=== PATIENT | male | born 1950 | race Caucasian/White ===

== ENCOUNTER 2024-03-08 11:27 | Observation (INO) ==
--- NOTE | 2024-03-08 12:10 | Emergency Department Note ---
HPI - Abdominal Pain General Chief Complaint: Abdominal Pain Stated Complaint: stomach pain Time Seen by Provider: 03/08/24 11:56 Source: patient Mode of arrival: walk-in Limitations: no limitations History of Present Illness HPI narrative: This is a 73 year old male patient that presents to the ER with c/o upper abdominal pain with diarrhea today. Patient denies any chest pain, back pain, fever, chills or N/V MD elicited complaint: abdominal pain Pertinent past history: none Onset (ago): hour(s) (2) Pain Consistency: constant Location: RUQ Severity: mild Quality: aching Radiation: none Migration to: no migration Exacerbating factors: nothing Relieving factors: nothing Associated symptoms: diarrhea Related Data Allergies Allergy/AdvReac Type Severity Reaction Status Date / Time ibuprofen Allergy Gastrointestinal Verified 03/08/24 11:59 Upset tramadol Allergy Gastrointestinal Verified 03/08/24 11:59 Upset Review of Systems Status of ROS 10 or more systems reviewed and unremark able except as noted in history and below Constitutional Denies: fever, chills, change in weight, fatigue, malaise or night sweats Eyes Denies: change in vision, blurry vision, blind spots, light sensitivity or eye discomfort Ears, nose, mouth, and throat Denies: throat pain, neck pain, throat swelling or difficulty swallowing Cardiovascular Denies: chest pain, palpitations, edema, swelling of feet/ankles or lightheadedness Respiratory Denies: shortness of breath, cough, wheezing, stridor or pain on inspiration Gastrointestinal Reports: abdominal pain and diarrhea; Denies: nausea, vomiting, coffee grounds in vomit, heartburn, constipation or belching Genitourinary Denies: painful urination, urinary frequency, urinary urgency, blood in urine, genital pain or genital lesion Musculoskeletal Denies: back pain, neck pain, extremity pain, extremity swelling, joint pain or limited range of motion Integumentary/Breast Denies: rash, itching, redness, skin pain or skin tenderness Neurological Denies: headache, numbness in extremities, weakness in extremities or lack of coordination Psychiatric Denies: anxiety, mood swings, panic attacks, change in sleep pattern or hopelessness Endocrine Denies: excessive urination, excessive thirst, fatigue or cold intolerance Hematologic/Lymphatic Denies: easy bruising, easy bleeding or enlarged lymph nodes Allergic/Immunologic Denies: hives, throat swelling, tongue swelling, facial swelling or wheezing [facility] Medical History (Updated 03/08/24 @ 14:47 by Caridad Miranda, RN) HTN (hypertension) CVA (cerebral vascular accident) Surgical History (Updated 03/08/24 @ 14:47 by Caridad Miranda, RN) Hx of shoulder surgery History of knee surgery H/O gastric bypass History of intestinal surgery Social History Smoking status: current some day smoker Within the past year, how often did you have a drink containing alcohol: never Score interpretation: A score less than 4 is consistent with normal alcohol consumption. Exam Constitutional: normal general appearance and no apparent distress Vital Signs - 24 hr 03/08/24 11:58 03/08/24 14:54 Temperature 98.4 F Pulse Rate 93 H Respiratory Rate 19 Blood Pressure 163/99 141/86 Pulse Oximetry 95 HENMT: normocephalic, head/scalp atraumatic and hearing grossly normal bilaterally Eyes: PERRL, EOMs intact bilaterally, conjunctivae normal and no scleral icterus Neck/C-Spine: visual inspection normal and trachea midline Lymph: no lymphadenopathy noted Chest: inspection of chest normal Respiratory: breath sounds equal bilaterally, normal respiratory effort, clear to auscultation bilaterally, no wheezes, no rales, no retractions, no use of accessory muscles and chest percussion normal Cardiovascular: normal heart rate noted, regular rhythm noted, no gallop, no rub, no murmur, no JVD, no clicks, peripheral pulses 2+ throughout and no additional abnormal heart sounds Gastrointestinal: abdomen normal to inspection, abdomen soft to palpation, tender to palpation (mild) and (RUQ), nontender to percussion, nondistended, normoactive bowel sounds, no hepatosplenomegaly, no masses, no pulsatile mass, no ascites and no hernia Genitourinary: no CVA tenderness Back/Pelvis: spine normal to inspection Extremities: normal to inspection, normal to palpation, no tenderness, full ROM, no joint enlargement and no deformity Neurology: no movement abnormality noted, gait normal, speech normal and GCS normal Psychiatry: mental status grossly normal, oriented x3, thought process normal and cooperative Skin: skin color normal Course Course Hospital Course: 1443: patient c/o chest pain, new orders written, will admit patient to the hospital for further evaluation and treatment due to risk factors and medical hx. Patient is currently on Plavix, ASA and warfarin according to his medication list Vital Signs Vital signs: Vital Signs Temperature 98.4 F 03/08/24 11:58 Pulse Rate 93 H 03/08/24 11:58 Respiratory Rate 19 03/08/24 11:58 Blood Pressure 163/99 03/08/24 11:58 Pulse Oximetry 95 03/08/24 11:58 Temperature 98.4 F 03/08/24 11:58 Pulse Rate 93 H 03/08/24 11:58 Respiratory Rate 19 03/08/24 11:58 Blood Pressure 141/86 03/08/24 14:54 Pulse Oximetry 95 03/08/24 11:58 MDM - Abdominal Pain Differential Diagnosis Differential diagnosis: Likely gastroenteritis Lab Data Attestation: I reviewed the patient's lab results. Labs: Lab Results 03/08/24 03/08/24 Range/Units 11:50 14:25 WBC 4.2 (3.7-9.6) K/uL RBC 4.5 (4.40-5.80) M/uL Hgb 12.2 L (14.0-17.4) gm/dL Hct 38.4 L (41.3-50.1) % MCV 85.1 (81.9-96.5) fl MCH 27.1 L (27.6-33.7) pg MCHC 31.9 L (33.0-35.7) g/dl RDW 21.4 H (11.0-14.8) % Plt Count 235 (142-355) K/uL MPV 9.1 (6.0-10.4) fl Gran % 70.1 (49.1-73.1) % Lymph % (Auto) 20.2 (17.6-39.05) % [place] % (Auto) 8.3 (4.5-10.7) % Eos % (Auto) 0.7 (0.0-4.0) % Baso % (Auto) 0.7 (0.0-1.3) Lymph # (Auto) 0.9 (0.8-2.9) [place] # (Auto) 0.4 (0.2-0.8) Eos # (Auto) 0.0 (0.0-0.3) Baso # (Auto) 0.0 (0.0-0.1) Absolute Gran (auto) 3.0 (2.0-6.2) PT Normal Control 13.7 Sodium 139 (136-145) mmol/L Potassium 3.2 L (3.6-5.2) mmol/L Chloride 103.0 (98-107) mmol/L Carbon Dioxide 27 (21-32) mmol/L Anion Gap 9.0 (4-14) mEq/L BUN 11 (7-18) mg/dL Creatinine 0.8 (0.6-1.3) mg/dL Estimated GFR 94.0 (>59.9) Glucose 120 H (70-110) mg/dL Calcium 8.8 (8.5-10.1) mg/dL Total Bilirubin 0.49 (0.0-1.0) mg/dL AST 24 (15-37) U/L ALT 23 L (30-65) U/L Alkaline Phosphatase 94 (50-136) U/L Troponin I High Sens 11.50 (4.0-60.4) ng/L Total Protein 8.0 (6.4-8.2) g/dL Albumin 3.4 (3.4-5.0) g/dL Lipase 26.0 (16.0-77.0) U/L Urine Color Yellow (STRAW/YELL.) Urine Appearance Clear (CLEAR) Ur Specific [place] 1.025 (1.001-1.035) Urine Protein Negative (NEGATIVE) Urine Glucose (UA) Normal (NORMAL) Urine Ketones Negative (NEGATIVE) Urine Occult Blood Negative (NEG - TRACE) Urine Nitrite Negative (NEGATIVE) Urine Bilirubin Negative (NEGATIVE) Urine Urobilinogen Normal (NORMAL) Ur Leukocyte Esterase Negative (NEGATIVE) Fluid pH 7.5 (5 - 9) Imaging Data Imaging ordered: CT scan - abdomen Attestation: I have reviewed the pertinent imaging results. ECG Data Attestation: I have reviewed the pertinent ECG results. Discharge Plan Discharge Patient Disposition: Admitted As Observation Condition: Stable Clinical Impression: Chest pain, Abdominal pain
[2024-03-08 12:21] LABS: Basophils%(Percent) Auto 0.7 (0.0-1.3); Eosinophils%(Percent) Auto 0.7 % (0.0-4.0); Granulocytes % - Auto 70.1 % (49.1-73.1); Hematocrit 38.4 % (41.3-50.1); Mean Corpuscular Volume 85.1 fl (81.9-96.5); Monocytes #(Absolute)- Auto 0.4 (0.2-0.8); Monocytes %(Percent)- Auto 8.3 % (4.5-10.7); Platelet Count 235 K/uL (142-355); White Blood Count 4.2 K/uL (3.7-9.6)
[2024-03-08 12:31] LABS: Potassium 3.2 mmol/L (3.6-5.2)
[2024-03-08 14:38] LABS: PH BODY FLUID EXCP BLOOD 7.5 (5 - 9); Specific Gravity Urine 1.025 (1.001-1.035); Urine Appearance CLEAR (CLEAR); Urine Blood NEGATIVE (NEG - TRACE); Urine Color YELLOW (STRAW/YELL.); Urine Urobilinogen Normal (NORMAL)
[2024-03-08] MEDS ORDERED: ONDANSETRON HCL/PF 4 MG/2 ML VIAL ONE (14:49)
[2024-03-08] MEDS ORDERED: MORPHINE SULFATE 2 MG/ML CARTRIDGE IV ONE (14:49)
[2024-03-08] MEDS ORDERED: PANTOPRAZOLE SODIUM 40 MG VIAL ONE (14:49)
[2024-03-08] MEDS ORDERED: NITROGLYCERIN 1 GM OINT...G. TD ONE (14:49)
[2024-03-08] MEDS: POTASSIUM CHLORIDE 20 MEQ TAB.ER.PRT PO ONE (14:54)
[2024-03-08] MEDS: NITROGLYCERIN 1 GM OINT...G. TD ONE (14:54)
[2024-03-08] MEDS: MORPHINE SULFATE 2 MG/ML CARTRIDGE IV ONE (14:55)
[2024-03-08] MEDS: ONDANSETRON HCL/PF 4 MG/2 ML VIAL IVP ONE (14:55)
[2024-03-08] MEDS: PANTOPRAZOLE SODIUM 40 MG VIAL IVP ONE (14:56)
[2024-03-08 15:18] LABS: INR 1.29
[2024-03-08] MEDS: MORPHINE SULFATE 2 MG/ML CARTRIDGE IV PRN (19:04)
[2024-03-08] MEDS: NITROGLYCERIN 1 GM OINT...G. TD SCH (21:11)
[2024-03-09 03:32] LABS: Eosinophils#(Absolute)Auto 0.1 (0.0-0.3); Eosinophils%(Percent) Auto 2.8 % (0.0-4.0); Granulocytes % - Auto 54.9 % (49.1-73.1); Hematocrit 33.6 % (41.3-50.1); Mean Corpuscular Volume 84.8 fl (81.9-96.5); Monocytes #(Absolute)- Auto 0.4 (0.2-0.8); Monocytes %(Percent)- Auto 11.5 % (4.5-10.7); Platelet Count 192 K/uL (142-355); White Blood Count 3.6 K/uL (3.7-9.6)
[2024-03-09 03:43] LABS: INR 1.28
[2024-03-09 03:56] LABS: Potassium 3.6 mmol/L (3.6-5.2)
[2024-03-09] MEDS: ACETAMINOPHEN 325 MG TABLET PO PRN (06:17)
--- NOTE | 2024-03-09 13:11 | Short Stay Summary ---
H&P: HPI History of Present Illness Chief complaint: chest pain , abdominal pain Review of Systems Status of ROS 10 or more systems reviewed and unremark able except as noted in history and below Constitutional Denies: fever, chills, change in weight, fatigue, malaise or night sweats Eyes Denies: change in vision, blurry vision, blind spots, light sensitivity or eye discomfort Ears, nose, mouth, and throat Denies: throat pain, neck pain, throat swelling or difficulty swallowing Cardiovascular Denies: chest pain, palpitations, edema, swelling of feet/ankles, lightheadedness or shortness of breath with exertion Respiratory Denies: shortness of breath, cough, wheezing, stridor or pain on inspiration Gastrointestinal Reports: abdominal pain and diarrhea; Denies: nausea, vomiting, coffee grounds in vomit, heartburn, constipation, belching or difficulty swallowing Genitourinary Denies: painful urination, urinary frequency, urinary urgency, blood in urine, genital pain or genital lesion Musculoskeletal Denies: back pain, neck pain, extremity pain, extremity swelling, joint pain or limited range of motion Integumentary/Breast Denies: rash, itching, redness, skin pain or skin tenderness Neurological Denies: headache, numbness in extremities, weakness in extremities or lack of coordination Psychiatric Denies: anxiety, mood swings, panic attacks, change in sleep pattern or hopelessness Endocrine Denies: excessive urination, excessive thirst, fatigue or cold intolerance Hematologic/Lymphatic Denies: easy bruising, easy bleeding or enlarged lymph nodes Allergic/Immunologic Denies: hives, throat swelling, tongue swelling, facial swelling or wheezing PFSH PFSH Medical History (Updated 03/08/24 @ 14:47 by Caridad Miranda RN) HTN (hypertension) CVA (cerebral vascular accident) Surgical History (Updated 03/08/24 @ 14:47 by Caridad Miranda RN) Hx of shoulder surgery History of knee surgery H/O gastric bypass History of intestinal surgery Social History Smoking status: current some day smoker Within the past year, how often did you have a drink containing alcohol: never Score interpretation: A score less than 4 is consistent with normal alcohol consumption. Problems where you live: no known problems Highest level of school completed/degree received: high school Meds Home Medications and Allergies Allergies Allergy/AdvReac Type Severity Reaction Status Date / Time ibuprofen Allergy Gastrointestinal Verified 03/08/24 11:59 Upset tramadol Allergy Gastrointestinal Verified 03/08/24 11:59 Upset Exam Constitutional: Vital Signs - 24 hr 03/08/24 13:30 03/08/24 14:30 03/08/24 14:54 Temperature Pulse Rate 71 68 Pulse Rate [Left B rachial] Respiratory Rate 16 16 Blood Pressure 156/87 140/86 141/86 Blood Pressure [Le ft Arm] Pulse Oximetry 96 95 Oxygen Delivery Me thod Room Air Room Air 03/08/24 15:15 03/08/24 15:30 03/08/24 15:41 Temperature Pulse Rate 69 68 Pulse Rate [Left B rachial] 62 Respiratory Rate 18 19 16 Blood Pressure 146/90 153/92 Blood Pressure [Le ft Arm] Pulse Oximetry 96 96 95 Oxygen Delivery Me thod Room Air Room Air Room Air 03/08/24 15:42 03/08/24 15:42 03/08/24 16:00 Temperature 98.4 F 98.1 F Pulse Rate 69 69 Pulse Rate [Left B rachial] 68 Respiratory Rate 18 16 16 Blood Pressure 146/90 153/88 Blood Pressure [Le ft Arm] 108/75 Pulse Oximetry [address] thod Room Air Room Air 03/08/24 16:11 03/08/24 19:16 03/08/24 23:19 Temperature 97.9 F 98.2 F Pulse Rate Pulse Rate [Left B rachial] 89 58 L Respiratory Rate 19 17 Blood Pressure 108/75 Blood Pressure [Le ft Arm] 111/70 134/85 Pulse Oximetry 91 L [address] thod Room Air Room Air 03/09/24 03:12 03/09/24 07:27 03/09/24 11:30 Temperature 97.9 F 98.5 F 97.9 F Pulse Rate Pulse Rate [Left B rachial] 58 L 61 70 Respiratory Rate 18 17 18 Blood Pressure Blood Pressure [Le ft Arm] 130/87 134/80 141/86 Pulse Oximetry 95 93 L 96 Oxygen Delivery Me thod Room Air Room Air Room Air Results Labs Labs: CBC WBC 3.6 K/uL (3.7-9.6) L 03/09/24 03:10 RBC 4.0 M/uL (4.40-5.80) L 03/09/24 03:10 Hgb 10.7 gm/dL (14.0-17.4) L 03/09/24 03:10 Hct 33.6 % (41.3-50.1) L 03/09/24 03:10 MCV 84.8 fl (81.9-96.5) 03/09/24 03:10 MCH 27.1 pg (27.6-33.7) L 03/09/24 03:10 MCHC 32.0 g/dl (33.0-35.7) L 03/09/24 03:10 RDW 21.5 % (11.0-14.8) H 03/09/24 03:10 Plt Count 192 K/uL (142-355) 03/09/24 03:10 MPV 9.0 fl (6.0-10.4) 03/09/24 03:10 Gran % 54.9 % (49.1-73.1) 03/09/24 03:10 Lymph % (Auto) 29.8 % (17.6-39.05) 03/09/24 03:10 [place] % (Auto) 11.5 % (4.5-10.7) H 03/09/24 03:10 Eos % (Auto) 2.8 % (0.0-4.0) 03/09/24 03:10 Baso % (Auto) 1.0 (0.0-1.3) 03/09/24 03:10 Lymph # (Auto) 1.1 (0.8-2.9) 03/09/24 03:10 [place] # (Auto) 0.4 (0.2-0.8) 03/09/24 03:10 Eos # (Auto) 0.1 (0.0-0.3) 03/09/24 03:10 Baso # (Auto) 0.0 (0.0-0.1) 03/09/24 03:10 Absolute Gran (auto) 2.0 (2.0-6.2) 03/09/24 03:10 BMP Sodium 143 mmol/L (136-145) 03/09/24 03:10 Potassium 3.6 mmol/L (3.6-5.2) 03/09/24 03:10 Chloride 108.0 mmol/L (98-107) H 03/09/24 03:10 Carbon Dioxide 29 mmol/L (21-32) 03/09/24 03:10 Anion Gap 6.0 mEq/L (4-14) 03/09/24 03:10 BUN 11 mg/dL (7-18) 03/09/24 03:10 Creatinine 0.6 mg/dL (0.6-1.3) 03/09/24 03:10 Estimated GFR 102.6 (>59.9) 03/09/24 03:10 Glucose 88 mg/dL (70-110) 03/09/24 03:10 Calcium 8.3 mg/dL (8.5-10.1) L 03/09/24 03:10 Total Bilirubin 0.40 mg/dL (0.0-1.0) 03/09/24 03:10 AST 21 U/L (15-37) 03/09/24 03:10 ALT 19 U/L (30-65) L 03/09/24 03:10 Alkaline Phosphatase 70 U/L (50-136) 03/09/24 03:10 Total Protein 6.6 g/dL (6.4-8.2) 03/09/24 03:10 Albumin 2.8 g/dL (3.4-5.0) L 03/09/24 03:10 Cardiac Enzymes Troponin I High Sens 12.90 ng/L (4.0-60.4) 03/09/24 03:10 Liver Function Total Bilirubin 0.40 mg/dL (0.0-1.0) 03/09/24 03:10 AST 21 U/L (15-37) 03/09/24 03:10 ALT 19 U/L (30-65) L 03/09/24 03:10 Alkaline Phosphatase 70 U/L (50-136) 03/09/24 03:10 Total Protein 6.6 g/dL (6.4-8.2) 03/09/24 03:10 Albumin 2.8 g/dL (3.4-5.0) L 03/09/24 03:10 Urine Urine Color Yellow (STRAW/YELL.) 03/08/24 14:25 Urine Appearance Clear (CLEAR) 03/08/24 14:25 Ur Specific [place] 1.025 (1.001-1.035) 03/08/24 14:25 Urine Protein Negative (NEGATIVE) 03/08/24 14:25 Urine Glucose (UA) Normal (NORMAL) 03/08/24 14:25 Urine Ketones Negative (NEGATIVE) 03/08/24 14:25 Urine Occult Blood Negative (NEG - TRACE) 03/08/24 14:25 Urine Nitrite Negative (NEGATIVE) 03/08/24 14:25 Urine Bilirubin Negative (NEGATIVE) 03/08/24 14:25 Urine Urobilinogen Normal (NORMAL) 03/08/24 14:25 Ur Leukocyte Esterase Negative (NEGATIVE) 03/08/24 14:25 DS: Providers Provider Date of admission: 03/08/24 15:27 Primary care physician: Khadra Camarillo NP DS: Summary Hospital Course Hospital Course: 1443: patient c/o chest pain, new orders written, will admit patient to the hospital for further evaluation and treatment due to risk factors and medical hx. Patient is currently on Plavix, ASA and warfarin according to his medication list Time Spent with Patient Time attestation: Total time spent providing and/or coordinating discharge services: Discharge Plan Discharge Condition: Stable Hospital Course: 1443: patient c/o chest pain, new orders written, will admit patient to the hospital for further evaluation and treatment due to risk factors and medical hx. Patient is currently on Plavix, ASA and warfarin according to his medication list Interventions: MED/SURG & ICU Observation Charge Sheet Last Done: 03/09/24 06:11 Print Language: Malagasy Follow-Ups: Khadra Camarillo NP [Primary Care Provider] -
--- NOTE | 2024-03-09 14:10 | Internal Medicine H&P ---
Internal Medicine - H&P: HPI History of Present Illness Chief complaint: chest pain , abdominal pain Narrative: Here with concerns about abdominal and chest pains. ER work-up benign. States he has not done well over the last month due to a bowel obstruction s/p resection with CVA and right-sided arm/leg weakness and numbness. He was in [place] and has moved in with a cousin since leaving rehab there. Has had stable labs and vitals since admission, but still with difficulty ambulating or using RIGHT hand/arm. CP related more to difficulty of moving RIGHT arm. Abdominal pain improved overnight. PMH: CVA with rt/dominant-sided deficits PSH: bowel resection Social: single, living with family. Review of Systems Status of ROS 10 or more systems reviewed and unremark able except as noted in history and below Constitutional Denies: fever, chills, change in weight, fatigue, malaise or night sweats Eyes Denies: change in vision, blurry vision, blind spots, light sensitivity or eye discomfort Ears, nose, mouth, and throat Denies: throat pain, neck pain, throat swelling or difficulty swallowing Cardiovascular Denies: chest pain, palpitations, edema, swelling of feet/ankles, lightheadedness or shortness of breath with exertion Respiratory Denies: shortness of breath, cough, wheezing, stridor or pain on inspiration Gastrointestinal Reports: abdominal pain and diarrhea; Denies: nausea, vomiting, coffee grounds in vomit, heartburn, constipation, belching or difficulty swallowing Genitourinary Denies: painful urination, urinary frequency, urinary urgency, blood in urine, genital pain or genital lesion Musculoskeletal Denies: back pain, neck pain, extremity pain, extremity swelling, joint pain or limited range of motion Integumentary/Breast Denies: rash, itching, redness, skin pain or skin tenderness Neurological Reports: numbness in extremities, weakness in extremities and lack of coordination; Denies: headache Psychiatric Denies: anxiety, mood swings, panic attacks, change in sleep pattern or hopelessness Endocrine Denies: excessive urination, excessive thirst, fatigue or cold intolerance Hematologic/Lymphatic Denies: easy bruising, easy bleeding or enlarged lymph nodes Allergic/Immunologic Denies: hives, throat swelling, tongue swelling, facial swelling or wheezing [facility] Medical History (Updated 03/09/24 @ 14:33 by Reggie Edwards MD) HTN (hypertension) CVA (cerebral vascular accident) Surgical History (Updated 03/08/24 @ 14:47 by Caridad Miranda RN) Hx of shoulder surgery History of knee surgery H/O gastric bypass History of intestinal surgery Social History Smoking status: current some day smoker Within the past year, how often did you have a drink containing alcohol: never Score interpretation: A score less than 4 is consistent with normal alcohol consumption. Problems where you live: no known problems Highest level of school completed/degree received: high school Meds Home Medications and Allergies Allergies Allergy/AdvReac Type Severity Reaction Status Date / Time ibuprofen Allergy Gastrointestinal Verified 03/08/24 11:59 Upset tramadol Allergy Gastrointestinal Verified 03/08/24 11:59 Upset Exam Constitutional: normal general appearance, no apparent distress, average body habitus, no limitations and alert Vital Signs - 24 hr 03/08/24 14:30 03/08/24 14:54 03/08/24 15:15 Temperature Pulse Rate 68 69 Pulse Rate [Left B rachial] Respiratory Rate 16 18 Blood Pressure 140/86 141/86 146/90 Blood Pressure [Le ft Arm] Pulse Oximetry 95 96 Oxygen Delivery Me thod Room Air Room Air 03/08/24 15:30 03/08/24 15:41 03/08/24 15:42 Temperature 98.4 F Pulse Rate 68 69 Pulse Rate [Left B rachial] 62 Respiratory Rate 19 16 18 Blood Pressure 153/92 146/90 Blood Pressure [Le ft Arm] Pulse Oximetry 96 95 96 Oxygen Delivery Me thod Room Air Room Air 03/08/24 15:42 03/08/24 16:00 03/08/24 16:11 Temperature 98.1 F Pulse Rate 69 Pulse Rate [Left B rachial] 68 Respiratory Rate 16 16 Blood Pressure 153/88 108/75 Blood Pressure [Le ft Arm] 108/75 Pulse Oximetry 97 95 Oxygen Delivery Me thod Room Air Room Air 03/08/24 19:16 03/08/24 23:19 03/09/24 03:12 Temperature 97.9 F 98.2 F 97.9 F Pulse Rate Pulse Rate [Left B rachial] 89 58 L 58 L Respiratory Rate 19 17 18 Blood Pressure Blood Pressure [Le ft Arm] 111/70 134/85 130/87 Pulse Oximetry 91 L 94 L 95 Oxygen Delivery Me thod Room Air Room Air Room Air 03/09/24 07:27 03/09/24 11:30 Temperature 98.5 F 97.9 F Pulse Rate Pulse Rate [Left B rachial] 61 70 Respiratory Rate 17 18 Blood Pressure Blood Pressure [Le ft Arm] 134/80 141/86 Pulse Oximetry 93 L 96 Oxygen Delivery Me thod Room Air Room Air HENMT: normocephalic, head/scalp atraumatic, hearing grossly normal bilaterally and external ears normal Eyes: PERRL, EOMs intact bilaterally and conjunctivae normal Neck/C-Spine: visual inspection normal and trachea midline Respiratory: breath sounds equal bilaterally, normal respiratory effort, clear to auscultation bilaterally and no wheezes Cardiovascular: normal heart rate noted, regular rhythm noted and no murmur Gastrointestinal: abdomen abnormal to inspection (well-healed surgical scars), abdomen soft to palpation, nontender to palpation, nondistended and normoactive bowel sounds Extremities: normal to inspection, normal to palpation, no tenderness, abnormal ROM noted, no joint enlargement and no deformity Neurology: accounting methods analyst II-XII intact, focal motor deficit noted spastic: right upper e xtremity, gait abnormality noted, speech abnormality noted (expressive aphasia) and (garbled) and coordination abnormality noted ([id number] test abnormal) (right) Psychiatry: mental status grossly normal, oriented x3, thought process normal, cooperative, affect normal and psychomotor abnormality noted (slow) Internal Medicine - H&P: Reslt Labs Labs: CBC WBC 3.6 K/uL (3.7-9.6) L 03/09/24 03:10 RBC 4.0 M/uL (4.40-5.80) L 03/09/24 03:10 Hgb 10.7 gm/dL (14.0-17.4) L 03/09/24 03:10 Hct 33.6 % (41.3-50.1) L 03/09/24 03:10 MCV 84.8 fl (81.9-96.5) 03/09/24 03:10 MCH 27.1 pg (27.6-33.7) L 03/09/24 03:10 MCHC 32.0 g/dl (33.0-35.7) L 03/09/24 03:10 RDW 21.5 % (11.0-14.8) H 03/09/24 03:10 Plt Count 192 K/uL (142-355) 03/09/24 03:10 MPV 9.0 fl (6.0-10.4) 03/09/24 03:10 Gran % 54.9 % (49.1-73.1) 03/09/24 03:10 Lymph % (Auto) 29.8 % (17.6-39.05) 03/09/24 03:10 [place] % (Auto) 11.5 % (4.5-10.7) H 03/09/24 03:10 Eos % (Auto) 2.8 % (0.0-4.0) 03/09/24 03:10 Baso % (Auto) 1.0 (0.0-1.3) 03/09/24 03:10 Lymph # (Auto) 1.1 (0.8-2.9) 03/09/24 03:10 [place] # (Auto) 0.4 (0.2-0.8) 03/09/24 03:10 Eos # (Auto) 0.1 (0.0-0.3) 03/09/24 03:10 Baso # (Auto) 0.0 (0.0-0.1) 03/09/24 03:10 Absolute Gran (auto) 2.0 (2.0-6.2) 03/09/24 03:10 BMP Sodium 143 mmol/L (136-145) 03/09/24 03:10 Potassium 3.6 mmol/L (3.6-5.2) 03/09/24 03:10 Chloride 108.0 mmol/L (98-107) H 03/09/24 03:10 Carbon Dioxide 29 mmol/L (21-32) 03/09/24 03:10 Anion Gap 6.0 mEq/L (4-14) 03/09/24 03:10 BUN 11 mg/dL (7-18) 03/09/24 03:10 Creatinine 0.6 mg/dL (0.6-1.3) 03/09/24 03:10 Estimated GFR 102.6 (>59.9) 03/09/24 03:10 Glucose 88 mg/dL (70-110) 03/09/24 03:10 Calcium 8.3 mg/dL (8.5-10.1) L 03/09/24 03:10 Total Bilirubin 0.40 mg/dL (0.0-1.0) 03/09/24 03:10 AST 21 U/L (15-37) 03/09/24 03:10 ALT 19 U/L (30-65) L 03/09/24 03:10 Alkaline Phosphatase 70 U/L (50-136) 03/09/24 03:10 Total Protein 6.6 g/dL (6.4-8.2) 03/09/24 03:10 Albumin 2.8 g/dL (3.4-5.0) L 03/09/24 03:10 Cardiac Enzymes Troponin I High Sens 12.90 ng/L (4.0-60.4) 03/09/24 03:10 Liver Function Total Bilirubin 0.40 mg/dL (0.0-1.0) 03/09/24 03:10 AST 21 U/L (15-37) 03/09/24 03:10 ALT 19 U/L (30-65) L 03/09/24 03:10 Alkaline Phosphatase 70 U/L (50-136) 03/09/24 03:10 Total Protein 6.6 g/dL (6.4-8.2) 03/09/24 03:10 Albumin 2.8 g/dL (3.4-5.0) L 03/09/24 03:10 Urine Urine Color Yellow (STRAW/YELL.) 03/08/24 14:25 Urine Appearance Clear (CLEAR) 03/08/24 14:25 Ur Specific [place] 1.025 (1.001-1.035) 03/08/24 14:25 Urine Protein Negative (NEGATIVE) 03/08/24 14:25 Urine Glucose (UA) Normal (NORMAL) 03/08/24 14:25 Urine Ketones Negative (NEGATIVE) 03/08/24 14:25 Urine Occult Blood Negative (NEG - TRACE) 03/08/24 14:25 Urine Nitrite Negative (NEGATIVE) 03/08/24 14:25 Urine Bilirubin Negative (NEGATIVE) 03/08/24 14:25 Urine Urobilinogen Normal (NORMAL) 03/08/24 14:25 Ur Leukocyte Esterase Negative (NEGATIVE) 03/08/24 14:25 Assessment and Plan Assessment and Plan (1) Hemiparesis affecting right side as late effect of cerebrovascular accident (CVA): Assessment and Plan: PT/OT/ST. Likely does need to be in rehab. Code(s): I69.351 - Hemiplegia and hemiparesis following cerebral infarction affecting right dominant side (2) Aphasia S/P CVA: Assessment and Plan: subacute. Code(s): I69.320 - Aphasia following cerebral infarction (3) Atypical chest pain: Assessment and Plan: Resolved. Monitor for changes. Code(s): R07.89 - Other chest pain Plan Monitor. Plan for CTA head/neck tomorrow. Ness needs inpt rehab.
[2024-03-10 05:36] LABS: Basophils%(Percent) Auto 0.5 (0.0-1.3); Eosinophils%(Percent) Auto 0.5 % (0.0-4.0); Granulocytes % - Auto 86.4 % (49.1-73.1); Granulocytes#(Absolute)- Auto 3.4 (2.0-6.2); Hematocrit 33.9 % (41.3-50.1); Mean Corpuscular Volume 83.8 fl (81.9-96.5); Monocytes #(Absolute)- Auto 0.3 (0.2-0.8); Platelet Count 159 K/uL (142-355)
[2024-03-10 06:10] LABS: Potassium 3.3 mmol/L (3.6-5.2)
[2024-03-10] MEDS: POTASSIUM CHLORIDE 20 MEQ TAB.ER.PRT PO ONE (11:31)
[2024-03-10] MEDS: LOSARTAN POTASSIUM 50 MG TABLET PO SCH (13:04)
[2024-03-10] MEDS: METOPROLOL TARTRATE 25 MG TABLET PO SCH (13:04)
[2024-03-10] MEDS: ESCITALOPRAM OXALATE 10 MG TABLET PO SCH (13:04)
[2024-03-10] MEDS: POTASSIUM CHLORIDE 10 MEQ CAPSULE.ER PO SCH (13:04)
[2024-03-10] MEDS: CLOPIDOGREL BISULFATE 75 MG TABLET PO SCH (13:04)
[2024-03-10] MEDS: PANTOPRAZOLE SODIUM 40 MG TABLET.DR PO SCH (13:04)
--- NOTE | 2024-03-10 14:04 | Progress Note ---
Progress Note: Subjective Subjective Interval history: patient denies any chest or abdominal pain this am. He is worried about going home and caring for himself with his right arm and leg numb and weaker than his left secondary to previous stroke 3-4 weeks ago and he has been out of the state with family to seek help from them and is staying near his daughter but he is still alone relying on friends to help with his IADL's and ADL's completions. does not drive and cannot bathe self alone and no cooking and has trouble with memory and gets agitated easily. Exam Constitutional: abnormal general appearance (disheveled), (chronically ill) and other (very poor hygiene), no apparent distress, abnormal body habitus (cachectic) and (overweight), limitations noted (behavioral limitations) and (physical limitations) and alert Vital Signs - 24 hr 03/09/24 15:59 03/09/24 19:43 03/09/24 23:33 Temperature 99.0 F 101.8 F H 98.9 F Pulse Rate [Left B rachial] 86 106 H 94 H Respiratory Rate 19 19 17 Blood Pressure [Le ft Arm] 156/98 146/88 129/74 Pulse Oximetry 95 92 L 92 L Oxygen Delivery Me thod Room Air Room Air Room Air Fraction of Inspir ed Oxygen 03/10/24 03:44 03/10/24 08:00 03/10/24 09:09 Temperature 99.3 F 98.8 F Pulse Rate [Left B rachial] 83 74 Respiratory Rate 18 19 Blood Pressure [Le ft Arm] 134/80 143/80 Pulse Oximetry 100 95 94 L Oxygen Delivery Me thod Room Air Room Air Room Air Fraction of Inspir ed Oxygen 21 03/10/24 11:56 Temperature 98.9 F Pulse Rate [Left B rachial] 72 Respiratory Rate 19 Blood Pressure [Le ft Arm] 121/82 Pulse Oximetry 97 Oxygen Delivery Me thod Room Air Fraction of Inspir ed Oxygen HENMT: normocephalic, head/scalp atraumatic, hearing grossly normal bilaterally, external ears abnormal, TMs abnormal, oral mucous membranes abnormal, oropharynx abnormal, dentition abnormal and gingiva abnormal Eyes: PERRL, EOMs intact bilaterally, conjunctivae normal, papilledema noted and no nystagmus Neck/C-Spine: trachea midline, cervical spine nontender, abnormal cervical ROM noted, supple, no meningeal signs, thyroid normal and no carotid bruits Lymph: no lymphadenopathy noted and no lymphedema noted Respiratory: breath sounds equal bilaterally, normal respiratory effort, clear to auscultation bilaterally, no wheezes, no rales, no retractions and no use of accessory muscles Cardiovascular: normal heart rate noted, regular rhythm noted, no gallop, no rub, no murmur, no clicks, peripheral pulses 2+ throughout and no bruits noted Gastrointestinal: abdomen abnormal to inspection (well-healed surgical scars), abdomen soft to palpation, nontender to palpation, nontender to percussion, nondistended, normoactive bowel sounds, hepatosplenomegaly noted, no masses and no pulsatile mass Genitourinary: no CVA tenderness, bladder normal to palpation, external appearance normal and penis normal Back/Pelvis: no thoracic spine tenderness, no lumbar spine tenderness, th oracic spine ROM abnormal and lumbar spine ROM abnormal Extremities: normal to inspection, normal to palpation, no tenderness, abnormal ROM noted, no joint enlargement and no deformity 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, no movement abnormality noted, focal motor deficit noted spastic: right upper extremity, gait abnormality noted, speech abnormality noted (expressive aphasia) and (garbled) and coordination abnormality noted ([id number] test abnormal) (right) Psychiatry: mental status abnormal other, oriented x3, thought process abnormality noted, cooperative, affect normal, psychomotor abnormality noted (slow) and memory abnormal Feel stressed/tense/nervous/anxious/difficulty sleeping: very much Life stressors: divorce/separation, financial matters and unknown source of stress Skin: skin color normal (dirty), no rash, lesion(s) noted, no ecchymosis noted, wound(s) noted (bruises to knees and scratch milner to extremities), laceration(s) noted, skin turgor abnormal, no jaundice, petechiae noted, mottling noted and nails abnormality noted Progress Note: Objective Labs Labs: CBC WBC 4.0 K/uL (3.7-9.6) 03/10/24 04:40 RBC 4.0 M/uL (4.40-5.80) L 03/10/24 04:40 Hgb 11.2 gm/dL (14.0-17.4) L 03/10/24 04:40 Hct 33.9 % (41.3-50.1) L 03/10/24 04:40 MCV 83.8 fl (81.9-96.5) 03/10/24 04:40 MCH 27.7 pg (27.6-33.7) 03/10/24 04:40 MCHC 33.0 g/dl (33.0-35.7) 03/10/24 04:40 RDW 22.1 % (11.0-14.8) H 03/10/24 04:40 Plt Count 159 K/uL (142-355) 03/10/24 04:40 MPV 9.5 fl (6.0-10.4) 03/10/24 04:40 Gran % 86.4 % (49.1-73.1) H 03/10/24 04:40 Lymph % (Auto) 5.6 % (17.6-39.05) L 03/10/24 04:40 [place] % (Auto) 7.0 % (4.5-10.7) 03/10/24 04:40 Eos % (Auto) 0.5 % (0.0-4.0) 03/10/24 04:40 Baso % (Auto) 0.5 (0.0-1.3) 03/10/24 04:40 Lymph # (Auto) 0.2 (0.8-2.9) L 03/10/24 04:40 [place] # (Auto) 0.3 (0.2-0.8) 03/10/24 04:40 Eos # (Auto) 0.0 (0.0-0.3) 03/10/24 04:40 Baso # (Auto) 0.0 (0.0-0.1) 03/10/24 04:40 Absolute Gran (auto) 3.4 (2.0-6.2) 03/10/24 04:40 BMP Sodium 139 mmol/L (136-145) 03/10/24 04:40 Potassium 3.3 mmol/L (3.6-5.2) L 03/10/24 04:40 Chloride 104.0 mmol/L (98-107) 03/10/24 04:40 Carbon Dioxide 27 mmol/L (21-32) 03/10/24 04:40 Anion Gap 8.0 mEq/L (4-14) 03/10/24 04:40 BUN 14 mg/dL (7-18) 03/10/24 04:40 Creatinine 0.6 mg/dL (0.6-1.3) 03/10/24 04:40 Estimated GFR 102.6 (>59.9) 03/10/24 04:40 Glucose 110 mg/dL (70-110) 03/10/24 04:40 Calcium 8.4 mg/dL (8.5-10.1) L 03/10/24 04:40 Total Bilirubin 0.61 mg/dL (0.0-1.0) 03/10/24 04:40 AST 24 U/L (15-37) 03/10/24 04:40 ALT 16 U/L (30-65) L 03/10/24 04:40 Alkaline Phosphatase 68 U/L (50-136) 03/10/24 04:40 Total Protein 6.6 g/dL (6.4-8.2) 03/10/24 04:40 Albumin 2.8 g/dL (3.4-5.0) L 03/10/24 04:40 Cardiac Enzymes Troponin I High Sens 12.90 ng/L (4.0-60.4) 03/09/24 03:10 Liver Function Total Bilirubin 0.61 mg/dL (0.0-1.0) 03/10/24 04:40 AST 24 U/L (15-37) 03/10/24 04:40 ALT 16 U/L (30-65) L 03/10/24 04:40 Alkaline Phosphatase 68 U/L (50-136) 03/10/24 04:40 Total Protein 6.6 g/dL (6.4-8.2) 03/10/24 04:40 Albumin 2.8 g/dL (3.4-5.0) L 03/10/24 04:40 Urine Urine Color Yellow (STRAW/YELL.) 03/08/24 14:25 Urine Appearance Clear (CLEAR) 03/08/24 14:25 Ur Specific [place] 1.025 (1.001-1.035) 03/08/24 14:25 Urine Protein Negative (NEGATIVE) 03/08/24 14:25 Urine Glucose (UA) Normal (NORMAL) 03/08/24 14:25 Urine Ketones Negative (NEGATIVE) 03/08/24 14:25 Urine Occult Blood Negative (NEG - TRACE) 03/08/24 14:25 Urine Nitrite Negative (NEGATIVE) 03/08/24 14:25 Urine Bilirubin Negative (NEGATIVE) 03/08/24 14:25 Urine Urobilinogen Normal (NORMAL) 03/08/24 14:25 Ur Leukocyte Esterase Negative (NEGATIVE) 03/08/24 14:25 ABG Attestation: I have reviewed the pertinent ABG results. Pulse Oximetry Attestation: I have reviewed the pertinent pulse oximetry results. ECG Attestation: I have reviewed the pertinent ECG results. Progress Note: A&P Assessment and Plan (1) Hemiparesis affecting right side as late effect of cerebrovascular accident (CVA): Assessment and Plan: PT/OT/ST. Likely does need to be in rehab. (2) Aphasia S/P CVA: Assessment and Plan: subacute. (3) Atypical chest pain: Assessment and Plan: Resolved. Monitor for changes. (4) Multiple falls: (5) Contusion of left knee and lower leg: Assessment and Plan: continue to monitor patient declined compression and will keep elevated Qualifiers: Encounter type: subsequent encounter Qualified Code(s): S80.02XD - Contusion of left knee, subsequent encounter; S80.12XD - Contusion of left lower leg, subsequent encounter (6) Contusion of right knee and lower leg: Assessment and Plan: continue to monitor patient declined compression and will keep elevated Qualifiers: Encounter type: subsequent encounter Qualified Code(s): S80.01XD - Contusion of right knee, subsequent encounter; S80.11XD - Contusion of right lower leg, subsequent encounter (7) HTN (hypertension): Assessment and Plan: orthostatics resume yobany eBP medications Qualifiers: Hypertension type: primary hypertension Qualified Code(s): I10 - Essential (primary) hypertension (8) Diarrhea: Assessment and Plan: if recurs then will do stool WBC, Culture & sensitivity and C. Diff study with ova and parasite Qualifiers: Diarrhea type: unspecified type Qualified Code(s): R19.7 - Diarrhea, unspecified (9) Epigastric abdominal pain: Assessment and Plan: protonix BID and may start Pepcid if issues not improved (10) Physical debility: (11) Vascular dementia with behavior disturbance: Assessment and Plan: consider BHU placement for safety if not qualifying for rehab and since needs ability to stay safe at home. (12) Medication noncompliance due to cognitive impairment: Plan Monitor. Plan for CTA head/neck tomorrow. Ness needs inpt rehab. Fall Risk Details Cortés Fall Scale Risk Level: Moderate Fall Risk Current Medications: Current Medications Acetaminophen (Acetaminophen 325 Mg Tablet) 650 mg PO Q6H PRN PRN Reason: Pain Last Admin: 03/09/24 21:39 Dose: 650 mg Atorvastatin Calcium (Atorvastatin Calcium 40 Mg Tablet) 80 mg PO BEDTIME [facility] Clopidogrel Bisulfate (Clopidogrel Bisulfate 75 Mg Tablet) 75 mg PO DAILY [facility] Last Admin: 03/10/24 13:04 Dose: 75 mg Escitalopram Oxalate (Escitalopram Oxalate 10 Mg Tablet) 10 mg PO DAILY [facility] Last Admin: 03/10/24 13:04 Dose: 10 mg Gabapentin (Gabapentin 400 Mg Capsule) 800 mg PO TID [facility] Losartan Potassium (Losartan Potassium 50 Mg Tablet) 50 mg PO DAILY [facility] Last Admin: 03/10/24 13:04 Dose: 50 mg Metoprolol Tartrate (Metoprolol Tartrate 25 Mg Tablet) 25 mg PO Q12H [facility] Last Admin: 03/10/24 13:04 Dose: 25 mg Morphine Sulfate (Morphine Sulfate 2 Mg/Ml Cartridge) 1 mg IV Q4H PRN PRN Reason: Chest Pain Last Admin: 03/09/24 03:14 Dose: 1 mg Nitroglycerin (Nitroglycerin 1 Gm Oint...G.) 1 gm TD Q6H [facility] Last Admin: 03/10/24 09:55 Dose: Not Given Non-Formulary Medication (Aspirin-Dipyridamole) 1 cap PO BID [facility] Pantoprazole Sodium (Pantoprazole Sodium 40 Mg Tablet.Dr) 40 mg PO Q12H [facility] Last Admin: 03/10/24 13:04 Dose: 40 mg Potassium Chloride (Potassium Chloride 10 Meq Capsule.Er) 10 meq PO DAILY [facility] Last Admin: 03/10/24 13:04 Dose: 10 meq Time Spent With Patient Time: Total time spent is greater than 50% in coordination of care (as documented) at patient's floor/unit and/or counseling patient: Time with patient: greater than 35 minutes
[2024-03-10] MEDS: GABAPENTIN 400 MG CAPSULE PO SCH (15:53)
[2024-03-10] MEDS: 0.9 % SODIUM CHLORIDE 1000 ML 1,000 ML IV SCH (17:19)
[2024-03-10] MEDS: ATORVASTATIN CALCIUM 40 MG TABLET PO SCH (20:06)
[2024-03-10] MEDS: DIPYRIDAMOLE PO SCH (20:07)
[2024-03-10] MEDS: ASPIRIN PO SCH (20:07)
[2024-03-10] MEDS: [UNRECOGNIZED DRUG - OTHER] PO SCH (20:07)
[2024-03-11 05:51] LABS: Basophils%(Percent) Auto 0.8 (0.0-1.3); Eosinophils#(Absolute)Auto 0.2 (0.0-0.3); Eosinophils%(Percent) Auto 6.7 % (0.0-4.0); Granulocytes % - Auto 47.2 % (49.1-73.1); Granulocytes#(Absolute)- Auto 1.2 (2.0-6.2); Hematocrit 32.9 % (41.3-50.1); Mean Corpuscular Volume 85.6 fl (81.9-96.5); Monocytes #(Absolute)- Auto 0.4 (0.2-0.8); Monocytes %(Percent)- Auto 17.3 % (4.5-10.7); Platelet Count 142 K/uL (142-355); White Blood Count 2.5 K/uL (3.7-9.6)
[2024-03-11 06:08] LABS: Potassium 3.6 mmol/L (3.6-5.2)
[2024-03-12 08:29] VITALS: BP 118/75; PULSE 56; RESP 19; TEMP 97.4
--- NOTE | 2024-03-12 09:17 | Progress Note ---
Progress Note: Subjective Subjective Interval history: Patient has been accepted to [facility] at [facility], room 244. Exam Constitutional: abnormal general appearance (disheveled), (chronically ill) and other (very poor hygiene), no apparent distress, abnormal body habitus (cachectic) and (overweight), limitations noted (behavioral limitations) and (physical limitations) and alert Vital Signs - 24 hr 03/11/24 09:44 03/11/24 12:00 03/11/24 15:56 Temperature 98 F 98.1 F Pulse Rate Pulse Rate [Left B rachial] 47 L 53 L Respiratory Rate 19 19 Blood Pressure Blood Pressure [Le ft Arm] 108/72 113/70 Pulse Oximetry 93 L 96 96 Oxygen Delivery Me thod Room Air Room Air Room Air Fraction of Inspir ed Oxygen 21 03/11/24 20:00 03/12/24 00:00 03/12/24 01:27 Temperature 98.6 F 97.8 F Pulse Rate 57 L Pulse Rate [Left B rachial] 56 L 57 L Respiratory Rate 19 14 Blood Pressure Blood Pressure [Le ft Arm] 123/77 125/54 Pulse Oximetry 95 95 Oxygen Delivery Me thod Room Air Room Air Fraction of Inspir ed Oxygen 03/12/24 04:00 03/12/24 08:00 03/12/24 09:10 Temperature 97.9 F 97.4 F L Pulse Rate Pulse Rate [Left B rachial] 61 56 L Respiratory Rate 17 19 Blood Pressure 118/75 Blood Pressure [Le ft Arm] 127/62 118/75 Pulse Oximetry 94 L 94 L Oxygen Delivery Me thod Room Air Room Air Fraction of Inspir ed Oxygen HENMT: normocephalic, head/scalp atraumatic, hearing grossly normal bilaterally, external ears abnormal, TMs abnormal, oral mucous membranes abnormal, oropharynx abnormal, dentition abnormal and gingiva abnormal Eyes: PERRL, EOMs intact bilaterally, conjunctivae normal, no scleral icterus, papilledema noted and no nystagmus Neck/C-Spine: visual inspection normal, trachea midline, cervical spine nontender, abnormal cervical ROM noted, supple, no meningeal signs, thyroid normal and no carotid bruits Lymph: no lymphadenopathy noted and no lymphedema noted Chest: inspection of chest normal Respiratory: breath sounds equal bilaterally, normal respiratory effort, clear to auscultation bilaterally, no wheezes, no rales, no retractions, no use of accessory muscles and chest percussion normal Cardiovascular: normal heart rate noted, regular rhythm noted, no gallop, no rub, no murmur, no JVD, no clicks, peripheral pulses 2+ throughout, no bruits noted and no additional abnormal heart sounds Gastrointestinal: abdomen abnormal to inspection (well-healed surgical scars), abdomen soft to palpation, nontender to palpation, nontender to percussion, nondistended, normoactive bowel sounds, hepatosplenomegaly noted, no masses, no pulsatile mass, no ascites and no hernia Genitourinary: no CVA tenderness, bladder normal to palpation, external appearance normal and penis normal Back/Pelvis: spine normal to inspection, no thoracic spine tenderness, no lumbar spine tenderness, thoracic spine ROM abnormal and lumbar spine ROM abnormal Extremities: normal to inspection, normal to palpation, no tenderness, abnormal ROM noted, no joint enlargement and no deformity 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, no movement abnormality noted, focal motor deficit noted spastic: right upper extremity, gait abnormality noted, speech abnormality noted (expressive aphasia) and (garbled), coordination abnormality noted ([id number] test abnormal) (right) and GCS normal Psychiatry: mental status abnormal other, oriented x3, thought process abnormality noted, cooperative, affect normal, psychomotor abnormality noted (slow) and memory abnormal Skin: skin color normal, no rash, lesion(s) noted, no ecchymosis noted, wound(s) noted (bruises to knees and scratch milner to extremities), laceration(s) noted, skin turgor abnormal, no jaundice, petechiae noted, mottling noted and nails abnormality noted Progress Note: Objective Labs Labs: CBC WBC 2.5 K/uL (3.7-9.6) L 03/11/24 04:15 RBC 3.8 M/uL (4.40-5.80) L 03/11/24 04:15 Hgb 10.7 gm/dL (14.0-17.4) L 03/11/24 04:15 Hct 32.9 % (41.3-50.1) L 03/11/24 04:15 MCV 85.6 fl (81.9-96.5) 03/11/24 04:15 MCH 27.9 pg (27.6-33.7) 03/11/24 04:15 MCHC 32.6 g/dl (33.0-35.7) L 03/11/24 04:15 RDW 21.8 % (11.0-14.8) H 03/11/24 04:15 Plt Count 142 K/uL (142-355) 03/11/24 04:15 MPV 9.3 fl (6.0-10.4) 03/11/24 04:15 Gran % 47.2 % (49.1-73.1) L 03/11/24 04:15 Lymph % (Auto) 28.0 % (17.6-39.05) 03/11/24 04:15 [place] % (Auto) 17.3 % (4.5-10.7) H 03/11/24 04:15 Eos % (Auto) 6.7 % (0.0-4.0) H 03/11/24 04:15 Baso % (Auto) 0.8 (0.0-1.3) 03/11/24 04:15 Lymph # (Auto) 0.7 (0.8-2.9) L 03/11/24 04:15 [place] # (Auto) 0.4 (0.2-0.8) 03/11/24 04:15 Eos # (Auto) 0.2 (0.0-0.3) 03/11/24 04:15 Baso # (Auto) 0.0 (0.0-0.1) 03/11/24 04:15 Absolute Gran (auto) 1.2 (2.0-6.2) L 03/11/24 04:15 BMP Sodium 141 mmol/L (136-145) 03/11/24 04:15 Potassium 3.6 mmol/L (3.6-5.2) 03/11/24 04:15 Chloride 107.0 mmol/L (98-107) 03/11/24 04:15 Carbon Dioxide 27 mmol/L (21-32) 03/11/24 04:15 Anion Gap 7.0 mEq/L (4-14) 03/11/24 04:15 BUN 16 mg/dL (7-18) 03/11/24 04:15 Creatinine 0.7 mg/dL (0.6-1.3) 03/11/24 04:15 Estimated GFR 97.9 (>59.9) 03/11/24 04:15 Glucose 87 mg/dL (70-110) 03/11/24 04:15 Calcium 7.8 mg/dL (8.5-10.1) L 03/11/24 04:15 Phosphorus 2.7 mg/dL (2.5-4.9) 03/11/24 04:15 Magnesium 1.9 mg/dL (1.8-2.4) 03/11/24 04:15 Total Bilirubin 0.30 mg/dL (0.0-1.0) 03/11/24 04:15 AST 21 U/L (15-37) 03/11/24 04:15 ALT 13 U/L (30-65) L 03/11/24 04:15 Alkaline Phosphatase 64 U/L (50-136) 03/11/24 04:15 Total Protein 6.1 g/dL (6.4-8.2) L 03/11/24 04:15 Albumin 2.5 g/dL (3.4-5.0) L 03/11/24 04:15 Cardiac Enzymes CK-MB (CK-2) 1.7 ng/mL 03/08/24 20:32 Troponin I High Sens 12.90 ng/L (4.0-60.4) 03/09/24 03:10 Liver Function Total Bilirubin 0.30 mg/dL (0.0-1.0) 03/11/24 04:15 AST 21 U/L (15-37) 03/11/24 04:15 ALT 13 U/L (30-65) L 03/11/24 04:15 Alkaline Phosphatase 64 U/L (50-136) 03/11/24 04:15 Total Protein 6.1 g/dL (6.4-8.2) L 03/11/24 04:15 Albumin 2.5 g/dL (3.4-5.0) L 03/11/24 04:15 Urine Urine Color Yellow (STRAW/YELL.) 03/08/24 14:25 Urine Appearance Clear (CLEAR) 03/08/24 14:25 Ur Specific [place] 1.025 (1.001-1.035) 03/08/24 14:25 Urine Protein Negative (NEGATIVE) 03/08/24 14:25 Urine Glucose (UA) Normal (NORMAL) 03/08/24 14:25 Urine Ketones Negative (NEGATIVE) 03/08/24 14:25 Urine Occult Blood Negative (NEG - TRACE) 03/08/24 14:25 Urine Nitrite Negative (NEGATIVE) 03/08/24 14:25 Urine Bilirubin Negative (NEGATIVE) 03/08/24 14:25 Urine Urobilinogen Normal (NORMAL) 03/08/24 14:25 Ur Leukocyte Esterase Negative (NEGATIVE) 03/08/24 14:25 Progress Note: A&P Assessment and Plan (1) Hemiparesis affecting right side as late effect of cerebrovascular accident (CVA): Assessment and Plan: PT/OT/ST. Likely does need to be in rehab. (2) Aphasia S/P CVA: Assessment and Plan: subacute. (3) Atypical chest pain: Assessment and Plan: Resolved. Monitor for changes. (4) Multiple falls: (5) Contusion of left knee and lower leg: Assessment and Plan: continue to monitor patient declined compression and will keep elevated Qualifiers: Encounter type: subsequent encounter Qualified Code(s): S80.02XD - Contusion of left knee, subsequent encounter; S80.12XD - Contusion of left lower leg, subsequent encounter (6) Contusion of right knee and lower leg: Assessment and Plan: continue to monitor patient declined compression and will keep elevated Qualifiers: Encounter type: subsequent encounter Qualified Code(s): S80.01XD - Contusion of right knee, subsequent encounter; S80.11XD - Contusion of right lower leg, subsequent encounter (7) HTN (hypertension): Assessment and Plan: orthostatics resume yobany eBP medications Qualifiers: Hypertension type: primary hypertension Qualified Code(s): I10 - Essential (primary) hypertension (8) Diarrhea: Assessment and Plan: if recurs then will do stool WBC, Culture & sensitivity and C. Diff study with ova and parasite Qualifiers: Diarrhea type: unspecified type Qualified Code(s): R19.7 - Diarrhea, unspecified (9) Epigastric abdominal pain: Assessment and Plan: protonix BID and may start Pepcid if issues not improved (10) Physical debility: (11) Vascular dementia with behavior disturbance: Assessment and Plan: consider BHU placement for safety if not qualifying for rehab and since needs ability to stay safe at home. (12) Medication noncompliance due to cognitive impairment: Plan Patient to be discharged to LTC at [facility]. Fall Risk Details Cortés Fall Scale Risk Level: Low Fall Risk Current Medications: Current Medications Acetaminophen (Acetaminophen 325 Mg Tablet) 650 mg PO Q6H PRN PRN Reason: Pain Last Admin: 03/09/24 21:39 Dose: 650 mg Atorvastatin Calcium (Atorvastatin Calcium 40 Mg Tablet) 80 mg PO BEDTIME [facility] Last Admin: 03/11/24 20:51 Dose: 80 mg Clopidogrel Bisulfate (Clopidogrel Bisulfate 75 Mg Tablet) 75 mg PO DAILY [facility] Last Admin: 03/12/24 09:10 Dose: 75 mg Escitalopram Oxalate (Escitalopram Oxalate 10 Mg Tablet) 10 mg PO DAILY [facility] Last Admin: 03/12/24 09:10 Dose: 10 mg Gabapentin (Gabapentin 400 Mg Capsule) 800 mg PO TID [facility] Last Admin: 03/12/24 09:09 Dose: 800 mg Losartan Potassium (Losartan Potassium 50 Mg Tablet) 50 mg PO DAILY [facility] Last Admin: 03/12/24 09:10 Dose: 50 mg Metoprolol Tartrate (Metoprolol Tartrate 25 Mg Tablet) 25 mg PO Q12H [facility] Last Admin: 03/12/24 01:27 Dose: Not Given Morphine Sulfate (Morphine Sulfate 2 Mg/Ml Cartridge) 1 mg IV Q4H PRN PRN Reason: Chest Pain Last Admin: 03/09/24 03:14 Dose: 1 mg Nitroglycerin (Nitroglycerin 1 Gm Oint...G.) 1 gm TD Q6H [facility] Last Admin: 03/12/24 09:10 Dose: Not Given Non-Formulary Medication (Aspirin-Dipyridamole) 1 cap PO BID [facility] Last Admin: 03/12/24 09:09 Dose: Not Given Pantoprazole Sodium (Pantoprazole Sodium 40 Mg Tablet.Dr) 40 mg PO Q12H [facility] Last Admin: 03/12/24 01:27 Dose: 40 mg Potassium Chloride (Potassium Chloride 10 Meq Capsule.Er) 10 meq PO DAILY [facility] Last Admin: 03/12/24 09:09 Dose: 10 meq Time Spent With Patient Time: Total time spent is greater than 50% in coordination of care (as documented) at patient's floor/unit and/or counseling patient:
--- NOTE | 2024-03-12 09:29 | Discharge Summary ---
DS: Providers Provider Date of admission: 03/08/24 15:27 Primary care physician: Khadra Camarillo NP Admitting clinician: Simi Goodwin Attending physician on admission: Reggie Edwards Consults: 03/10/24 10:43 Consult to Occupational Therapy Routine Comment: Consulting Provider: Reason for consultation: s/p cva right sided weakness Physician Instructions: evaluate and treat Consult to Physical Therapy Routine Comment: Consulting Provider: Reason for consultation: s/p cva right sided weakness Physician Instructions: evaluate and treat Attending physician on discharge: Ericka Ramsey Discharging clinician: Ericka Ramsey Anticipated date of discharge: 03/11/24 DS: Diagnosis Discharge Diagnosis (1) Atypical chest pain: (2) Multiple falls: (3) Diarrhea: Qualifiers: Diarrhea type: unspecified type Qualified Code(s): R19.7 - Diarrhea, unspecified (4) Aphasia S/P CVA: (5) Hemiparesis affecting right side as late effect of cerebrovascular accident (CVA): (6) Contusion of left knee and lower leg: Qualifiers: Encounter type: subsequent encounter Qualified Code(s): S80.02XD - Contusion of left knee, subsequent encounter; S80.12XD - Contusion of left lower leg, subsequent encounter (7) Contusion of right knee and lower leg: Qualifiers: Encounter type: subsequent encounter Qualified Code(s): S80.01XD - Contusion of right knee, subsequent encounter; S80.11XD - Contusion of right lower leg, subsequent encounter (8) HTN (hypertension): Qualifiers: Hypertension type: primary hypertension Qualified Code(s): I10 - Essential (primary) hypertension (9) Epigastric abdominal pain: (10) Physical debility: (11) Vascular dementia with behavior disturbance: (12) Medication noncompliance due to cognitive impairment: (13) Hypokalemia: (14) GERD with esophagitis: (15) Anemia, normocytic normochromic: (16) Leukopenia: Plan Patient ready to discharge to LTC Facility. Waiting for placement. DS: Summary Hospital Course Hospital Course: Patient is a 73 year old male, here with concerns about abdominal and chest pains. ER work-up benign. States he has not done well over the last month due to a bowel obstruction s/p resection with CVA and right-sided arm/leg weakness and numbness. He was in [place] and has moved in with a cousin since leaving rehab there. Has had stable labs and vitals since admission, but still with difficulty ambulating or using RIGHT hand/arm. CP related more to difficulty of moving RIGHT arm. Abdominal pain improved overnight. Day 2 of hospital stay, patient chest pain and abdominal pain has resolved. He expressed concern about going home to care for himself with right arm and leg numbness and weakness secondary to stroke approximately 3-4 weeks prior to current stay. Patient stated he feels as he has exhausted all his resources for help with his IADL's and ADL's; he is requesting LTC placement where he can receive rehab therapy and care. Case management is working to find potential placement as he is not able to care for himself and exhibits early stages of dementia. Mr. Robbins is medically ready to discharge to a LTC facility pending placement approval. Status at Discharge Functional status at discharge: uses cane/walker Overall status at discharge: patient is back to baseline Time Spent with Patient Time attestation: Total time spent providing and/or coordinating discharge services: Time spent: greater than 30 minutes Exam Exam: Patient in low hill's position upon entering room for exam. Patient rambled and unable to answer some questions with relevant answers. He was oriented to place. Constitutional: abnormal general appearance (disheveled), (chronically ill) and other (very poor hygiene), no apparent distress, abnormal body habitus (cachectic) and (overweight), limitations noted (behavioral limitations) and (physical limitations) and alert Vital Signs - 24 hr 03/10/24 11:56 03/10/24 16:00 03/10/24 16:12 Temperature 98.9 F 98.4 F 98.4 F Pulse Rate [Left B rachial] 72 61 61 Respiratory Rate 19 19 19 Blood Pressure [Le ft Arm] 121/82 119/71 119/71 Pulse Oximetry 97 93 L 93 L Oxygen Delivery Me thod Room Air Room Air Room Air 03/10/24 20:00 03/11/24 00:00 03/11/24 04:00 Temperature 98.3 F 97.9 F Pulse Rate [Left B rachial] 65 60 47 L Respiratory Rate 19 17 16 Blood Pressure [Le ft Arm] 112/62 104/61 Pulse Oximetry 95 100 97 Oxygen Delivery Me thod Room Air Room Air Room Air 03/11/24 07:53 Temperature 97.8 F Pulse Rate [Left B rachial] 50 L Respiratory Rate 19 Blood Pressure [Le ft Arm] 108/67 Pulse Oximetry 97 Oxygen Delivery Me thod Room Air HENMT: normocephalic, head/scalp atraumatic, hearing grossly normal b ilaterally, external ears abnormal, TMs abnormal, oral mucous membranes abnormal, oropharynx abnormal, dentition abnormal and gingiva abnormal Eyes: PERRL, EOMs intact bilaterally, conjunctivae normal, no scleral icterus, papilledema noted and no nystagmus Neck/C-Spine: visual inspection normal, trachea midline, cervical spine nontender, abnormal cervical ROM noted, supple, no meningeal signs, thyroid normal and no carotid bruits Lymph: no lymphadenopathy noted and no lymphedema noted Chest: inspection of chest normal Respiratory: breath sounds equal bilaterally, normal respiratory effort, clear to auscultation bilaterally, no wheezes, no rales, no retractions, no use of accessory muscles and chest percussion normal Cardiovascular: normal heart rate noted, regular rhythm noted, no gallop, no rub, no murmur, no JVD, no clicks, peripheral pulses 2+ throughout, no bruits noted and no additional abnormal heart sounds Gastrointestinal: abdomen abnormal to inspection (well-healed surgical scars), abdomen soft to palpation, nontender to palpation, nontender to percussion, nondistended, normoactive bowel sounds, hepatosplenomegaly noted, no masses, no pulsatile mass, no ascites and no hernia Genitourinary: no CVA tenderness, bladder normal to palpation, external appearance normal and penis normal Back/Pelvis: spine normal to inspection, no thoracic spine tenderness, no lumbar spine tenderness, thoracic spine ROM abnormal and lumbar spine ROM abnormal Extremities: normal to inspection, normal to palpation, no tenderness, abnormal ROM noted, no joint enlargement and no deformity Neurology: image processing engineer II-XII intact, no movement abnormality noted, focal motor d eficit noted spastic: right upper extremity, gait abnormality noted, speech abnormality noted (expressive aphasia) and (garbled), coordination abnormality noted (timtcs-mg-pypb test abnormal) (right) and GCS normal Psychiatry: mental status abnormal other, oriented x3, thought process abnormality noted, cooperative, affect normal, psychomotor abnormality noted (slow) and memory abnormal Skin: skin color normal, no rash, lesion(s) noted, no ecchymosis noted, wound(s) noted (bruises to knees and scratch milner to extremities), laceration (s) noted, skin turgor abnormal, no jaundice, petechiae noted, mottling noted and nails abnormality noted DS: Data Data Completed and Pending Labs on day of discharge: Labs from last 24 hours 03/11/24 03/08/24 03/08/24 04:15 20:32 15:50 WBC 2.5 L RBC 3.8 L Hgb 10.7 L Hct 32.9 L MCV 85.6 MCH 27.9 MCHC 32.6 L RDW 21.8 H Plt Count 142 MPV 9.3 Gran % 47.2 L Lymph % (Auto) 28.0 [place] % (Auto) 17.3 H Eos % (Auto) 6.7 H Baso % (Auto) 0.8 Lymph # (Auto) 0.7 L [place] # (Auto) 0.4 Eos # (Auto) 0.2 Baso # (Auto) 0.0 Absolute Gran (auto) 1.2 L Sodium 141 Potassium 3.6 Chloride 107.0 Carbon Dioxide 27 Anion Gap 7.0 BUN 16 Creatinine 0.7 Estimated GFR 97.9 Glucose 87 Calcium 7.8 L Phosphorus 2.7 Magnesium 1.9 Total Bilirubin 0.30 AST 21 ALT 13 L Alkaline Phosphatase 64 CK-MB (CK-2) 1.7 1.7 B-Natriuretic Peptide 33.3 Total Protein 6.1 L Albumin 2.[address] scan - abdomen: Radiologist's impression: CT ABDOMEN PELVIS W CON Date of Service: 03/08/24 HISTORY: pain; COMPARISON: CT abdomen 12/23/2021 TECHNIQUE: Contiguous axial CT images of the abdomen and pelvis following intravenous contrast. Images reviewed in the axial imaging plane with reformatted sagittal and coronal images.The above CT scan was done with automated exposure control and the mA and kV was adjusted to obtain quality images according to patient size. FINDINGS: The gallbladder is absent. Moderate distention of the common bile duct measuring 1.6 cm diameter. Slight dilatation of the central hepatic bile ducts. Homogeneous enhancement of the liver. Pancreas, spleen, adrenal glands, abdominal aorta appear intact. Kidneys normal size and position. Details of the GI tract are limited since oral contrast was not used. Small and large bowels normal caliber. Mild amount of fluid within the stomach. No evidence of acute appendicitis. No ascites. Urinary bladder mildly distended with urine. Mild diffuse thickening of the castillo of the urinary bladder. Prostate gland measures 4.4 cm transverse dimension. Small left inguinal hernia containing fat. Pulmonary bases are clear. Moderate to severe multilevel spondylosis. IMPRESSION: Cholecystectomy. Moderate distention of the extrahepatic biliary system and slight dilatation of the central hepatic biliary ducts. Findings may be further assessed with biliary ultrasound, nuclear medicine HIDA scan. No evidence of bowel obstruction. No hydronephrosis. GallBladder US: Radiologist's impression: US GALLBLADDER Date of Service: 03/08/24 HISTORY: pain; Unavailable COMPARISON: None. TECHNIQUE: Multiple delgado scale and color flow Doppler images of the right upper quadrant were obtained. FINDINGS: The liver exhibits mild increased echogenicity consistent with fatty infiltration.. No focal intraparenchymal mass or intrahepatic biliary ductal dilatation can be observed. The gallbladder is not visualized.. The common bile duct is unremarkable measuring 4.7 mm. Negative sonographic Pineda's sign.. The right kidney appears normal in size without focal parenchymal mass or nephrolithiasis. The right kidney measurers 10.7 x 6.2 x 6.5 cm.. No hydronephrosis or perirenal fluid can be observed. The pancreatic head and body are unremarkable. The pancreatic tail is largely obscured by overlying bowel gas. The IVC is patent. IMPRESSION: Mild fatty infiltration of the liver. Nonvisualization of the gallbladder. No intra or extrahepatic biliary ductal dilatation Chest x-ray: Radiologist's impression: XR CHEST 1V Date of Service: 03/08/24 HISTORY: pain; COMPARISON: None available. FINDINGS: The trachea is midline. The cardiac silhouette is unremarkable. The thoracic aorta is atherosclerotic and tortuous. The lungs are clear without focal infiltrate or effusion. The bony thorax is unremarkable. IMPRESSION: No acute cardiopulmonary disease. CT scan - head: Radiologist's impression: CT HEAD WITHOUT IV CONTRAST Date of Service: 03/09/24 HISTORY: Status post fall COMPARISON: 08/08/2023 TECHNIQUE: Axial images were acquired of the head without IV contrast. Coronal and sagittal images were provided. All images were reviewed in a variety of windows and levels. LIMITATIONS: Please note that CT has low sensitivity and accuracy for identifying acute infarction. In addition, there are portions of the brain that are affected by beam hardening artifact which further greatly limits identification of an acute infarct. RADIATION REDUCTION TECHNIQUE: Automated exposure control, Adjustment of the mA and/or kV according to patient size, or iterative reconstruction techniques were used. FINDINGS: There is diffuse cerebral atrophy with a regional distribution of low attenuatio n along the periventricular white matter most likely representing small vessel ischemic changes which are to a degree that would be considered within normal limits for the patient's stated age. Large regions of encephalomalacia are noted in the left temporal and parietal lobe. These are most likely from old infarcts. There is also regions of encephalomalacia in the bilateral occipital region. There is no evidence of an acute intracranial bleed. There is no evidence of a mass or midline shift. There is no evidence of an extra-axial fluid collection. The delgado-white matter differentiation is within normal limits. The visualized bones are unremarkable. The visualized sinuses are clear. The mastoid air cells are well-aerated. IMPRESSION: 1. INVOLUTIONAL CHANGES ARE PRESENT WITH FINDINGS SUGGESTING SMALL VESSEL ISCHEMIC DISEASE WHICH IS TO A DEGREE THAT WOULD BE CONSIDERED WITHIN NORMAL LIMITS FOR THE PATIENT'S STATED AGE. 2. THERE IS NO EVIDENCE OF ACUTE INTRACRANIAL BLEED. Discharge Plan Discharge Disposition: [facility] Condition: Improved Anticipated Discharge Date/Time: 03/12/24 09:21 Discharge Medications: New pantoprazole [Protonix] [address] for susp in packet 40 mg PO DAILY Qty: 30 0RF Continued clopidogrel 75 mg tablet 75 mg PO DAILY Patient Comments: TAKE 1 TABLET BY MOUTH DAILY potassium chloride 10 mEq capsule, extended release 10 meq PO DAILY Patient Comments: TAKE 1 CAPSULE BY MOUTH DAILY aspirin-dipyridamole 25-200 mg capsule, ER multiphase 12 hr 1 cap PO BID Patient Comments: TAKE 1 CAPSULE BY MOUTH TWICE DAILY escitalopram oxalate 10 mg tablet 10 mg PO DAILY Patient Comments: TAKE 1 TABLET BY MOUTH DAILY atorvastatin 80 mg tablet 80 mg PO BEDTIME Patient Comments: TAKE 1 TABLET BY MOUTH DAILY AT BEDTIME pantoprazole 40 mg tablet,delayed release (DR/EC) 40 mg PO Q12H Patient Comments: TAKE 1 TABLET BY MOUTH TWICE DAILY metoprolol tartrate 25 mg tablet 25 mg PO Q12H Patient Comments: TAKE 1 TABLET BY MOUTH TWICE DAILY losartan 50 mg tablet 50 mg PO DAILY Patient Comments: TAKE 1 TABLET BY MOUTH DAILY tizanidine 4 mg capsule 4 mg PO BEDTIME PRN (Reason: muscle spasticity) Patient Comments: TAKE 1 CAPSULE BY MOUTH AT BEDTIME NEEDED FOR MUSCLE SPASMS gabapentin 400 mg capsule 800 mg PO TID Patient Comments: TAKE 2 CAPSULES BY MOUTH THREE TIMES DAILY Discontinued lisinopril 10 mg tablet 10 mg PO DAILY Patient Comments: TAKE 1 TABLET BY MOUTH DAILY meloxicam 15 mg tablet 7.5 mg PO DAILY PRN (Reason: pain) Patient Comments: TAKE 1/2 TABLET BY MOUTH DAILY WITH FOOD NEEDED FOR PAIN warfarin 2 mg tablet See Rx Instructions .ROUTE .COMPLEX Patient Comments: TAKE 3 TABLETS BY MOUTH DAILY. EXCEPT 4 TABLET ON SUNDAY Rx Instructions: Take 3 tablets by mouth once daily on Sunday, Sunday, Sunday, , Sunday, and Sunday. Take 4 tablets by mouth on Sunday. Discharge Orders: Discharge Order (Routine); Ordered 03/12/24 Ordered By: Ericka Ramsey Activity: as per physical therapy Diet: low fat, low cholesterol Hospital Course: Patient is a 73 year old male, here with concerns about abdominal and chest pains. ER work-up benign. States he has not done well over the last month due to a bowel obstruction s/p resection with CVA and right-sided arm/leg weakness and numbness. He was in [place] and has moved in with a cousin since leaving rehab there. Has had stable labs and vitals since admission, but still with difficulty ambulating or using RIGHT hand/arm. CP related more to difficulty of moving RIGHT arm. Abdominal pain improved overnight. Day 2 of hospital stay, patient chest pain and abdominal pain has resolved. He expressed concern about going home to care for himself with right arm and leg numbness and weakness secondary to stroke approximately 3-4 weeks prior to current stay. Patient stated he feels as he has exhausted all his resources for help with his IADL's and ADL's; he is requesting LTC placement where he can receive rehab therapy and care. Case management is working to find potential placement as he is not able to care for himself and exhibits early stages of dementia. Mr. Robbins is medically ready to discharge to a LTC facility pending placement approval. Interventions: Discharge Assessment Last Done: 03/12/24 09:31 MED/SURG & ICU Observation Charge Sheet Last Done: 03/12/24 05:20 Plan of Treatment: needs repeat CBC 1 week and hematology referral if continues to have anemia Physical, speech and occupational therapy consults neurology follow up Primary provider on Admit and as needed. Print Language: Bulgarian Patient Instructions: Fall Prevention for Older Adults (GEN), Anemia (GEN) Forms: Portal/Health Info Access Inst Follow-Ups: Khadra Camarillo NP [Primary Care Provider] - 03/17/24 9:30 am Discharge Date/Time: 03/12/24 10:21
== END 2024-03-12 10:21 ==
LOC: MS 11:27 → ED 11:27 → MS 15:42
PROVIDERS: ADMIT Family Medicine; ATTEND Family Medicine
DX: R10.13 Epigastric pain; E87.6 Hypokalemia; R53.81 Other malaise; R41.9 Unspecified symptoms and signs involving cognitive functions and awareness; R29.6 Repeated falls; D64.89 Other specified anemias; I69.320 Aphasia following cerebral infarction; Z72.0 Tobacco use; I10 Essential (primary) hypertension; R07.89 Other chest pain; K21.00 Gastro-esophageal reflux disease with esophagitis, without bleeding; R19.7 Diarrhea, unspecified; S80.02XD Contusion of left knee, subsequent encounter; S80.01XD Contusion of right knee, subsequent encounter; S80.11XD Contusion of right lower leg, subsequent encounter; Y92.89 Other specified places as the place of occurrence of the external cause; Z91.148 Patient's other noncompliance with medication regimen for other reason; S80.12XD Contusion of left lower leg, subsequent encounter; D72.818 Other decreased white blood cell count; I69.351 Hemiplegia and hemiparesis following cerebral infarction affecting right dominant side; F01.518 Vascular dementia, unspecified severity, with other behavioral disturbance